=== PATIENT | female | born 1970 | race African-American/Black ===

== ENCOUNTER 2016-08-01 08:22 | Emergency (ER) | payer OTHER ==
[2016-08-01 07:36] LABS: INFLUENZA A NEG (NEG)
[2016-08-01 07:37] LABS: INFLUENZA B NEG (NEG)
== END 2016-08-01 10:12 | disposition home or self-care (01) ==
LOC: CED 08:22
PROVIDERS: Emergency Medicine
DX: B34.9 Viral infection, unspecified (principal); I10 Essential (primary) hypertension
CPT/HCPCS: 87651; 87804; 99283